=== PATIENT | male | born 1980 | race Caucasian/White ===

== ENCOUNTER 2018-11-25 09:57 | Emergency (ER) | payer SELFPAY ==
[~2018-11-25] VITALS: Ht 180.3 cm; Wt 68.0 kg
[~2018-11-25 09:57] MED LIST: IBUP1TAB PO
--- NOTE | 2018-11-25 10:23 | PHYS DOC ---
Past History Past Medical History: No Pertinent History, Other Past Surgical History: No Surgical History Alcohol Use: None Drug Use: None Adult General Chief Complaint Chief Complaint: LACERATION/AVULSION HPI HPI Patient is a 38 year old right handed male who presents with complaining of laceration of right index finger. Patient states he was using a box saw at work and cut the tip of right index finger without other injuries or neuro deficit. Patient is not up-to-date with his tetanus immunization. Review of Systems Review of Systems Constitutional: Denies fever or chills [] Eyes: Denies change in visual acuity, redness, or eye pain [] HENT: Denies nasal congestion or sore throat [] Respiratory: Denies cough or shortness of breath [] Cardiovascular: No additional information not addressed in HPI [] GI: Denies abdominal pain, nausea, vomiting, bloody stools or diarrhea [] : Denies dysuria or hematuria [] Musculoskeletal: Denies back pain or joint pain [] Integument: Denies rash or skin lesions [] Neurologic: Denies headache, focal weakness or sensory changes [] Endocrine: Denies polyuria or polydipsia [] All other systems were reviewed and found to be within normal limits, except as documented in this note. Current Medications Current Medications Current Medications Medications (Trade) Dose Ordered Sig/Kenisha Start Time Stop Time Status Last Admin Dose Admin Diphtheria/ Tetanus/Acell Pertussis (Boostrix) 0.5 ml ONCE ONCE 11/25/18 10:40 11/25/18 10:41 Allergies Allergies Allergies Coded Allergies Type Severity Reaction Last Updated Verified No Known Drug Allergies 06/08/15 No Physical Exam Physical Exam Constitutional: Well developed, well nourished, mild distress, non-toxic appearance. [] HENT: Normocephalic, atraumatic Eyes: PERRLA, EOMI, conjunctiva normal, no discharge. [] Neck: Normal range of motion, no tenderness, supple, no stridor. [] Cardiovascular:Heart rate regular rhythm, no murmur [] Lungs & Thorax: Bilateral breath sounds clear to auscultation [] Skin: Warm, dry, no erythema, no rash. [] Extremities: Partial amputation of tip of right index finger with a small pedicle attachment and change of color of the distal part of laceration with involvement of nail and missing small parts of radial side of nail, no neurovascular deficit, range of motion intact. Neurologic: Alert and oriented X 3, normal motor function, normal sensory function, no focal deficits noted. [] Psychologic: Affect normal, judgement normal, mood normal. [] Current Patient Data Vital Signs Vital Signs Date Time Temp Pulse Resp B/P (MAP) Pulse Ox O2 Delivery O2 Flow Rate FiO2 11/25/18 10:00 97.5 65 20 98 Room Air EKG EKG [] Radiology/Procedures Radiology/Procedures [address] [address] IMAGING REPORT Signed PATIENT: ANGELA GALLAGHER ACCOUNT: [id number] : 1980 LOCATION: ER AGE: 38 SEX: M EXAM STATUS: DEP ER ORD. PHYSICIAN: EARNEST MARAVILLA MD REASON: index finger injury PROCEDURE: FINGER(S) RIGHT Three-view right fingers dated 11/25/2018. No comparison available. CLINICAL INDICATION: Laceration.. Pain FINDINGS: 2 views right index finger show avulsion fracture at the distal tuft near the radial side with associated skin defect that extends to cortical bone. Osseous structures otherwise intact. The bone fragment is distracted volar-radial. There is an old healed fracture of the fifth metacarpal. IMPRESSION: Open avulsion fracture at the tuft of the index finger. Electronically signed by: Ty Huang MD (11/25/2018 11:23 AM) [facility] DICTATED AND SIGNED BY: TY HUANG MD DATE: 11/25/18 1123 CC: EARNEST MARAVILLA MD; PCP,NO ~ Course & Med Decision Making Course & Med Decision Making Evaluation of patient in ER showed 38-year-old male patient with finger laceration that was repaired with Dermabond and Steri-Strip and splint was placed. Maile Disclaimer Miale Disclaimer This electronic medical record was generated, in whole or in part, using a voice recognition dictation system. Departure Departure: Impression: Primary Impression: Laceration of finger Additional Impression: Avulsion fracture of distal phalanx of finger Disposition: HOME, SELF-CARE (1104) Condition: IMPROVED Referrals: [facility]PRAYA (PCP) Patient Instructions: Finger Fracture (Phalangeal)-SportsMed, Fingertip Laceration, Soft Tissue Injury of the Neck, [id number] Additional Instructions: Keep wound clean and dry Follow-up with your primary care physician in 3-5 days Return to ER if not getting better Scripts Cephalexin (KEFLEX) 500 Mg Capsule 2 CAP PO Q12HR for infection, #28 CAP Prov: EARNEST MARAVILLA MD 11/25/18 Laceration Repair Lac Repair Indication: Right index finger tip partial amputation Procedure: The patient was placed in the appropriate position and partial amputated tip of right index finger was repaired with Dermabond and Steri-Strip. Total repaired wound length: 1 cm Other Items: [OTHER ITEMS] The patient tolerated the procedure well. Complications: None. Problem Qualifiers Primary Impression: Laceration of finger Encounter type: initial encounter Finger: index finger Damage to nail status: with damage Foreign body presence: without foreign body Laterality: right Qualified Codes: S61.310A - Laceration without foreign body of right index finger with damage to nail, initial encounter EARNEST MARAVILLA MD Nov 25, 2018 10:23
[2018-11-25] MEDS ORDERED: DIPHTH,PERTUSS(ACELL),TET TOX 0.5 ML DISP.SYRIN. VAX IM ONE (10:40)
[2018-11-25 11:05] VITALS: BP 113/68
[2018-11-25] MEDS ORDERED: CEPH-264 PO (11:08)
--- NOTE | 2018-11-25 11:27 | RAD ---
Three-view right fingers dated 11/25/2018. No comparison available. CLINICAL INDICATION: Laceration.. Pain FINDINGS: 2 views right index finger show avulsion fracture at the distal tuft near the radial side with associated skin defect that extends to cortical bone. Osseous structures otherwise intact. The bone fragment is distracted volar-radial. There is an old healed fracture of the fifth metacarpal. IMPRESSION: Open avulsion fracture at the tuft of the index finger. Electronically signed by: Ty Huang MD (11/25/2018 11:23 AM) [facility]
== END 2018-11-25 11:10 | disposition home or self-care (01) ==
LOC: ER 09:57
DX: S62.630B Displaced fracture of distal phalanx of right index finger, initial encounter for open fracture (principal); S68.120A Partial traumatic metacarpophalangeal amputation of right index finger, initial encounter; W27.0XXA Contact with workbench tool, initial encounter; Y93.89 Activity, other specified; Y92.89 Other specified places as the place of occurrence of the external cause; Y99.8 Other external cause status
CPT/HCPCS: 29130; 73140; 90471; 90715; 99283-25